=== PATIENT | female | born 1980 | race Caucasian/White ===

== ENCOUNTER 2017-02-06 16:05 | Emergency (ER) | payer OTHER ==
[~2017-02-06] VITALS: Ht 162.6 cm; Wt 84.1 kg
[2017-02-06 16:07] VITALS: BP 117/80; PULSE 94; TEMP 98.4
[2017-02-06] MEDS ORDERED: ALDACTONE 25MG25 M1 PO (16:13)
[2017-02-06 16:46] LABS: PH 6 (5-8); URINE APPEARANCE Clear; URINE BACTERIA None Seen /hpf; URINE BILIRUBIN Negative (NEGATIVE); URINE BLOOD 2+ (NEGATIVE); URINE COLOR Amber; URINE GLUCOSE Negative (NEGATIVE); URINE KETONE 1+ (NEGATIVE); URINE UROBILINOGEN Negative (NEGATIVE)
[2017-02-06 17:23] LABS: ADJUSTED CALCIUM 9.1 mg/dL (8.4-10.2); ALBUMIN 4.3 gm/dL (3.5-5.0); BILIRUBIN,TOTAL 1.2 mg/dL (0.0-1.0); CALCIUM 9.3 mg/dL (8.4-10.2); CREATININE, serum 0.64 mg/dL (0.52-1.25); POTASSIUM 3.5 mmol/L (3.4-5.0); TOTAL PROTEIN 7.7 gm/dL (6.4-8.2)
[2017-02-06] MEDS ORDERED: ZOFRAN8 MG PO (17:31)
[2017-02-06] MEDS ORDERED: ULTRAM 50MG TAB50 MG PO (17:31)
[2017-02-06] MEDS ORDERED: MACROBID 1100 MG/CAP PO (17:31)
== END 2017-02-06 19:23 | disposition home or self-care (01) ==
LOC: COL.ER 16:05
PROVIDERS: Emergency Medicine
DX: E86.9 Volume depletion, unspecified (principal); N39.0 Urinary tract infection, site not specified; R10.31 Right lower quadrant pain; R10.32 Left lower quadrant pain; R10.13 Epigastric pain; R11.10 Vomiting, unspecified
CPT/HCPCS: J0696; J1170; J1885; J2405; J7030

== ENCOUNTER → 2017-07-22 | Outpatient (CLI) | payer OTHER ==
[~2017-07-22] MED LIST: ALDACTONE 25MG25 M1 PO; MACROBID 1100 MG/CAP PO; ULTRAM 50MG TAB50 MG PO; ZOFRAN8 MG PO
== END ==
LOC: COL.RAD 09:30
DX: N92.0 Excessive and frequent menstruation with regular cycle (principal)

== ENCOUNTER → 2019-10-02 | Outpatient (CLI) | payer OTHER | LOC: BHSO 08:46 | DX: F33.1 Major depressive disorder, recurrent, moderate (principal) ==

== ENCOUNTER → 2019-10-17 | Outpatient (CLI) | payer OTHER | LOC: BHSO 15:06 | DX: F41.1 Generalized anxiety disorder (principal) ==

== ENCOUNTER → 2019-10-31 | Outpatient (CLI) | payer OTHER | LOC: BHSO 15:07 | DX: F41.1 Generalized anxiety disorder (principal) ==

== ENCOUNTER → 2019-11-07 | Outpatient (CLI) | payer OTHER | LOC: BHSO 14:55 | DX: F41.1 Generalized anxiety disorder (principal) ==